=== PATIENT | female | born 1980 | race Two or more races ===

== ENCOUNTER 2025-08-22 05:55 | Emergency (ER) | payer MEDICAID, OTHER ==
[~2025-08-22] VITALS: Ht 165.1 cm; Wt 100.0 kg
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
[2025-08-22] MEDS: HALOPERIDOL LACTATE 5 MG/ML INJ VIAL IM ONE (06:38)
[2025-08-22 06:41] VITALS: BP 131/113; TEMP 97.9
[2025-08-22 06:48] VITALS: PULSE 104; RESP 18; O2SAT 98
[2025-08-22 07:12] LABS: Hematocrit 40.0 % (36.0-46.0); Hemoglobin 13.5 g/dL (12.2-16.2); Mean Corpuscular Hemoglobin 28.4 pg (28.0-32.0); Mean Corpuscular Volume 84.6 fL (80.0-100.0); Nucleated Red Blood Cells % 0.0 %
[2025-08-22 07:17] LABS: Chloride 104 mmol/L (98-107); Potassium 3.5 mmol/L (3.5-5.1); Sodium 139 mmol/L (136-145)
[2025-08-22 07:18] LABS: Anion Gap 11 (5-15); Carbon Dioxide 24 mmol/L (20-31)
[2025-08-22 07:19] LABS: Calcium 9.8 mg/dL (8.7-10.4)
[2025-08-22 07:23] LABS: BUN/Creatinine Ratio 14.5 (10.0-20.0); Blood Urea Nitrogen 11 mg/dL (9-23)
[2025-08-22 07:24] LABS: Glucose 203 mg/dL (74-106)
[2025-08-22] MEDS: LORazepam 2MG/ML-1ML VIAL IV ONE (07:44)
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
== END 2025-08-22 09:55 | disposition home or self-care (01) ==
LOC: ER 05:55 → EDBD 05:55 → ER 09:55
DX: M25.561 Pain in right knee (principal); F31.9 Bipolar disorder, unspecified; V89.2XXA Person injured in unspecified motor-vehicle accident, traffic, initial encounter; Y93.89 Activity, other specified; Y92.89 Other specified places as the place of occurrence of the external cause; Y99.8 Other external cause status
CPT/HCPCS: 36415; 70450; 80048; 85025; 96372; 96374; 99285; J1630; J2060